=== PATIENT | female | born 1975 | race Caucasian/White ===

== ENCOUNTER 2021-03-04 11:05 | Emergency (ER) | payer OTHER ==
[~2021-03-04] VITALS: Ht 162.6 cm; Wt 75.0 kg
[~2021-03-04 11:05] MED LIST: DEPRESSION MED PO; GABA-1201 PO; MELO-107 PO; TRAM50TA4 PO
[2021-03-04] MEDS ORDERED: BACL10TA PO (11:20)
[2021-03-04] MEDS ORDERED: MECL25TA39 PO (11:20)
[2021-03-04] MEDS ORDERED: TRAZ-257 PO (11:20)
[2021-03-04] MEDS ORDERED: ARIP5TAB37 PO (11:20)
[2021-03-04] MEDS ORDERED: DOCU-275 PO (11:20)
[2021-03-04] MEDS ORDERED: FLUT16H NASAL (11:20)
[2021-03-04] MEDS ORDERED: HYDR-3831 PO (11:20)
[2021-03-04] MEDS ORDERED: BECL10.6 IH (11:20)
[2021-03-04] MEDS ORDERED: FLUO20CA36 PO (11:20)
[2021-03-04] MEDS ORDERED: LORA10TA7 PO (11:20)
[2021-03-04] MEDS ORDERED: POLY17PO47 PO (11:20)
[2021-03-04] MEDS ORDERED: ALBU8.5H8 IH (11:20)
[2021-03-04] MEDS ORDERED: PANT-31 PO (11:20)
[2021-03-04] MEDS ORDERED: ASPIRIN 81 MG CHEWABLE TABLET PO ONE (11:30)
[2021-03-04 12:28] VITALS: BP 133/75
[2021-03-04 12:39] LABS: BASOPHILS % (AUTO) 0.4 % (0.0-2.0); EOSINOPHILS % (AUTO) 1.5 % (1.0-6.0); HEMATOCRIT 41.4 % (36-46); HEMOGLOBIN 13.9 g/dL (12.0-16.0); LYMPHOCYTES # (AUTO) 1.6 K/uL (1.0-4.8); MEAN CORPUSCULAR HEMOGLOBIN 32.9 pg (26.0-34.0); MEAN CORPUSCULAR HGB CONC 33.6 G/dL (31.0-37.0); MEAN CORPUSCULAR VOLUME 98 fL (80-100); MONOCYTES # (AUTO) 0.4 K/uL (0.1-1.0); NEUTROPHILS # (AUTO) 4.7 K/uL (1.8-7.7); NEUTROPHILS % (AUTO) 69.1 % (40.0-70.0); PLATELET COUNT (AUTO) 256 K/uL (150-450); RED BLOOD CELL COUNT(AUTO) 4.22 MIL/uL (4.00-5.20); RED CELL DISTRIBUTION WIDTH 12.9 % (11.5-14.5)
[2021-03-04 12:47] LABS: ANION GAP 8 mmol/L (8-16); CALCIUM, TOTAL 8.9 mg/dL (8.8-10.5); CARBON DIOXIDE 30 mmol/L (22-29); CHLORIDE 107 mmol/L (98-107); CREATININE 0.78 mg/dL (0.60-1.30); GLOMERULAR FILTR. RATE CALC > 60 mL/min (>60); GLUCOSE,RANDOM 94 mg/dL (70-110); POTASSIUM 4.8 mmol/L (3.5-5.1); SODIUM SERUM 145 mmol/L (136-145); UREA NITROGEN, BLOOD 11 mg/dL (7-18)
[2021-03-04 12:59] LABS: HCG,QUANTITATIVE 1 mIU/mL (0-6)
== END 2021-03-04 13:19 | disposition home or self-care (01) ==
LOC: EMS 11:11
DX: R55 Syncope and collapse (principal); R07.2 Precordial pain; R00.1 Bradycardia, unspecified; F12.90 Cannabis use, unspecified, uncomplicated; Z79.899 Other long term (current) drug therapy
CPT/HCPCS: 71045; 80048; 84484; 84702; 85025; 93005; 99285; 36415-L1; 36415-TC

== ENCOUNTER 2022-05-10 08:45 | Inpatient (IN) | payer MEDICAID, OTHER ==
[~2022-05-10] VITALS: Ht 160 cm; Wt 82.0 kg
[~2022-05-10 08:45] MED LIST changes: +ALBU8.5H8 IH; +ARIP5TAB37 PO; +BACL10TA PO; +BECL10.6 IH; -DEPRESSION MED PO; +DOCU-385 PO; +FLUO20CA36 PO; +FLUT16H NASAL; +HYDR-3831 PO; +LORA10TA7 PO; +MECL25TA39 PO; -MELO-107 PO; +MELO-381 PO; +PANT-31 PO; +POLY17PO47 PO; +TRAM-559 PO; -TRAM50TA4 PO; +TRAZ-257 PO
[2022-05-10] MEDS ORDERED: LORazepam 2 MG/ML VIAL ONE (09:21)
[2022-05-10] MEDS ORDERED: DiphenhydrAMINE HCL 50 MG/ML VIAL ONE (09:21)
[2022-05-10] MEDS ORDERED: HALOPERIDOL LACTATE 5 MG/ML VIAL ONE (09:22)
[2022-05-10] MEDS ORDERED: LORazepam 2 MG/ML VIAL IM ONE (09:30)
[2022-05-10] MEDS ORDERED: HALOPERIDOL LACTATE 5 MG/ML VIAL IM ONE (09:30)
[2022-05-10] MEDS ORDERED: DiphenhydrAMINE HCL 50 MG/ML VIAL IM ONE (09:30)
[2022-05-10] MEDS ORDERED: PERTUSS(ACELL),DIPH,TET VAC/PF 0.5 ML SYRINGE IM. ONE (10:15)
[2022-05-10] MEDS ORDERED: BACITRACIN 0.9 GM PACKET OINTMENT TP ONE (10:15)
[2022-05-10] MEDS ORDERED: LIDOCAINE 1% 10 ML VIAL SQ ONE (10:15)
[2022-05-10 10:47] LABS: BASOPHILS % (AUTO) 0.6 % (0.0-2.0); EOSINOPHILS % (AUTO) 1.2 % (1.0-6.0); HEMATOCRIT 40.4 % (36-46); HEMOGLOBIN 13.4 g/dL (12.0-16.0); LYMPHOCYTES % (AUTO) 31.9 % (22.0-44.0); MEAN CORPUSCULAR HEMOGLOBIN 32.9 pg (26.0-34.0); MEAN CORPUSCULAR HGB CONC 33.2 G/dL (31.0-37.0); MEAN CORPUSCULAR VOLUME 99 fL (80-100); MONOCYTES # (AUTO) 0.6 K/uL (0.1-1.0); NEUTROPHILS # (AUTO) 3.6 K/uL (1.8-7.7); NEUTROPHILS % (AUTO) 57.3 % (40.0-70.0); PLATELET COUNT (AUTO) 309 K/uL (150-450); RED BLOOD CELL COUNT(AUTO) 4.07 MIL/uL (4.00-5.20); RED CELL DISTRIBUTION WIDTH 12.9 % (11.5-14.5)
[2022-05-10 10:52] LABS: COVID AG,FIA SOURCE NASOPHARYNGEAL
[2022-05-10 10:58] LABS: ANION GAP 3 mmol/L (8-16); CALCIUM, TOTAL 8.9 mg/dL (8.8-10.5); CARBON DIOXIDE 32 mmol/L (22-29); CHLORIDE 107 mmol/L (98-107); CREATININE 0.98 mg/dL (0.60-1.30); GLUCOSE,RANDOM 88 mg/dL (70-110); POTASSIUM 3.5 mmol/L (3.5-5.1); SODIUM SERUM 142 mmol/L (136-145); UREA NITROGEN, BLOOD 15 mg/dL (7-18)
[2022-05-10 11:01] LABS: ALANINE AMINOTRANSFERASE 35 U/L (12-78); ALBUMIN 3.5 g/dL (3.4-5.0); ALKALINE PHOSPHATASE 80 U/L (46-116); ASPARTATE AMINOTRANSFERASE 28 U/L (15-37); BILIRUBIN,TOTAL 0.6 mg/dL (0.1-1.0); TOTAL PROTEIN, SERUM 7.1 g/dL (6.4-8.2)
[2022-05-10 11:03] LABS: GLOMERULAR FILTR. RATE CALC > 60 mL/min (>60)
[2022-05-10 14:41] VITALS: BP 120/73
[2022-05-10 16:33] VITALS: BP 103/69
[2022-05-10] MEDS: HALOPERIDOL 5 MG TABLET PO PRN (22:30)
[2022-05-10] MEDS: LORazepam 2 MG TABLET PO PRN (22:30)
[2022-05-11 08:00] VITALS: BP 131/77
[2022-05-11] MEDS ORDERED: CloNIDine HCL 0.1 MG TABLET PO PRN (09:30)
[2022-05-11] MEDS ORDERED: ACETAMINOPHEN 325 MG TABLET PO PRN (09:30)
[2022-05-11] MEDS ORDERED: IBUPROFEN 600 MG TABLET PO PRN (09:30)
[2022-05-11] MEDS ORDERED: PETROLATUM,WHITE 28 GM JELLY TP PRN (09:30)
[2022-05-11] MEDS ORDERED: ALBUTEROL SULFATE HFA 90 MCG/PUFF 8 GM INHALER IH PRN (09:30)
[2022-05-11] MEDS ORDERED: DOCUSATE SODIUM 100 MG CAPSULE PO PRN (09:30)
[2022-05-11] MEDS ORDERED: BENZOCAINE/MENTHOL LOZENGE PO PRN (09:30)
[2022-05-11] MEDS ORDERED: MAGNESIUM HYDROXIDE SUSPENSION 30 ML UDCUP PO PRN (09:30)
[2022-05-11] MEDS ORDERED: BACITRACIN 28 GM OINTMENT TP PRN (09:30)
[2022-05-11] MEDS ORDERED: LOPERAMIDE HCL 2 MG CAPSULE PO PRN (09:30)
[2022-05-11] MEDS: MELOXICAM 7.5 MG TABLET PO SCH ×2 (10:13→17:08)
[2022-05-11] MEDS: BECLOMETHASONE DIPR HFA 40 MCG/PUFF 10.6 GM INHALER IH SCH ×2 (10:14→15:55)
[2022-05-11] MEDS: LORATADINE 10 MG TABLET PO SCH (10:14)
[2022-05-11] MEDS: GABAPENTIN 400 MG CAPSULE PO SCH ×2 (12:07→15:55)
[2022-05-11] MEDS: MAG HYDROX/AL HYDROX/SIMETH ES 30 ML SUSPENSION UDCUP PO PRN (15:21)
[2022-05-11] MEDS: LORazepam 2 MG TABLET PO PRN (15:42)
[2022-05-11] MEDS: FLUTICASONE PROPIONATE 50 MCG/SPRAY 16 GM NASAL SPRAY NASAL SCH (15:54)
[2022-05-11 16:22] VITALS: BP 139/80
[2022-05-12] MEDS: LORazepam 2 MG TABLET PO PRN ×2 (04:53→09:04)
[2022-05-12] MEDS: FLUTICASONE PROPIONATE 50 MCG/SPRAY 16 GM NASAL SPRAY NASAL SCH ×2 (08:32→16:14)
[2022-05-12] MEDS: MELOXICAM 7.5 MG TABLET PO SCH ×2 (08:33→16:15)
[2022-05-12] MEDS: LORATADINE 10 MG TABLET PO SCH (08:33)
[2022-05-12] MEDS: BECLOMETHASONE DIPR HFA 40 MCG/PUFF 10.6 GM INHALER IH SCH ×2 (08:33→16:14)
[2022-05-12] MEDS: GABAPENTIN 400 MG CAPSULE PO SCH ×3 (08:34→16:16)
[2022-05-12] MEDS: HALOPERIDOL 5 MG TABLET PO PRN ×2 (08:34→16:33)
[2022-05-12 09:42] VITALS: BP 155/89
[2022-05-12 16:00] VITALS: BP 123/75
[2022-05-12] MEDS: MAG HYDROX/AL HYDROX/SIMETH ES 30 ML SUSPENSION UDCUP PO PRN (22:32)
[2022-05-13] MEDS: ZOLPIDEM TARTRATE 10 MG TABLET PO PRN ×2 (00:37→21:04)
[2022-05-13] MEDS: ONDANSETRON HCL 4 MG TABLET PO PRN (00:38)
[2022-05-13 00:44] VITALS: BP 146/94
[2022-05-13] MEDS: OMEPRAZOLE 20 MG CAPSULE PO PRN (06:11)
[2022-05-13 08:00] VITALS: BP 113/65
[2022-05-13] MEDS: LORATADINE 10 MG TABLET PO SCH (08:42)
[2022-05-13] MEDS: GABAPENTIN 400 MG CAPSULE PO SCH ×3 (08:42→16:04)
[2022-05-13] MEDS: MELOXICAM 7.5 MG TABLET PO SCH ×2 (08:43→16:04)
[2022-05-13] MEDS: FLUTICASONE PROPIONATE 50 MCG/SPRAY 16 GM NASAL SPRAY NASAL SCH ×2 (08:43→16:05)
[2022-05-13] MEDS: BECLOMETHASONE DIPR HFA 40 MCG/PUFF 10.6 GM INHALER IH SCH ×2 (08:44→16:05)
[2022-05-13 16:39] VITALS: BP 108/57
[2022-05-13] MEDS: LORazepam 2 MG TABLET PO PRN (21:04)
[2022-05-13] MEDS: HALOPERIDOL 5 MG TABLET PO PRN (21:04)
[2022-05-14] MEDS: LORazepam 2 MG TABLET PO PRN ×3 (03:44→18:09)
[2022-05-14] MEDS: HALOPERIDOL 5 MG TABLET PO PRN ×3 (03:44→18:09)
[2022-05-14 08:00] VITALS: BP 129/65
[2022-05-14] MEDS: LORATADINE 10 MG TABLET PO SCH (08:16)
[2022-05-14] MEDS: MELOXICAM 7.5 MG TABLET PO SCH ×2 (08:16→18:09)
[2022-05-14] MEDS: GABAPENTIN 400 MG CAPSULE PO SCH ×3 (08:16→18:09)
[2022-05-14] MEDS: FLUTICASONE PROPIONATE 50 MCG/SPRAY 16 GM NASAL SPRAY NASAL SCH ×2 (08:17→18:10)
[2022-05-14] MEDS: BECLOMETHASONE DIPR HFA 40 MCG/PUFF 10.6 GM INHALER IH SCH ×2 (08:18→18:10)
[2022-05-14] MEDS: MAG HYDROX/AL HYDROX/SIMETH ES 30 ML SUSPENSION UDCUP PO PRN (11:06)
[2022-05-14 16:00] VITALS: BP 102/70
[2022-05-15] MEDS: FLUTICASONE PROPIONATE 50 MCG/SPRAY 16 GM NASAL SPRAY NASAL SCH ×2 (08:50→18:14)
[2022-05-15] MEDS: BECLOMETHASONE DIPR HFA 40 MCG/PUFF 10.6 GM INHALER IH SCH ×2 (08:51→18:15)
[2022-05-15] MEDS: LORATADINE 10 MG TABLET PO SCH (08:51)
[2022-05-15] MEDS: MELOXICAM 7.5 MG TABLET PO SCH ×2 (08:51→17:28)
[2022-05-15] MEDS: GABAPENTIN 400 MG CAPSULE PO SCH ×3 (08:51→17:28)
[2022-05-15 09:00] VITALS: BP 114/78
[2022-05-15] MEDS: MAG HYDROX/AL HYDROX/SIMETH ES 30 ML SUSPENSION UDCUP PO PRN (13:16)
[2022-05-15 16:26] VITALS: BP 131/73
[2022-05-15] MEDS: LORazepam 2 MG TABLET PO PRN (17:29)
[2022-05-16] MEDS: MAG HYDROX/AL HYDROX/SIMETH ES 30 ML SUSPENSION UDCUP PO PRN (00:01)
[2022-05-16 02:00] VITALS: BP 112/77
[2022-05-16] MEDS: ZOLPIDEM TARTRATE 10 MG TABLET PO PRN ×2 (02:05→20:33)
[2022-05-16 06:41] LABS: COVID AG,FIA SOURCE NASAL SWAB
[2022-05-16 08:51] VITALS: BP 138/88
[2022-05-16] MEDS: FLUTICASONE PROPIONATE 50 MCG/SPRAY 16 GM NASAL SPRAY NASAL SCH ×2 (09:39→17:22)
[2022-05-16] MEDS: BECLOMETHASONE DIPR HFA 40 MCG/PUFF 10.6 GM INHALER IH SCH ×2 (09:39→17:22)
[2022-05-16] MEDS: HALOPERIDOL 5 MG TABLET PO PRN ×2 (09:40→15:16)
[2022-05-16] MEDS: ONDANSETRON HCL 4 MG TABLET PO PRN (09:40)
[2022-05-16] MEDS: GABAPENTIN 400 MG CAPSULE PO SCH ×3 (09:40→17:21)
[2022-05-16] MEDS: OMEPRAZOLE 20 MG CAPSULE PO PRN (09:40)
[2022-05-16] MEDS: LORATADINE 10 MG TABLET PO SCH (09:40)
[2022-05-16] MEDS: MELOXICAM 7.5 MG TABLET PO SCH ×2 (09:41→17:21)
[2022-05-16] MEDS: LORazepam 2 MG TABLET PO PRN (15:16)
[2022-05-16 16:00] VITALS: BP 133/79
[2022-05-17 08:00] VITALS: BP 130/81
[2022-05-17] MEDS: MELOXICAM 7.5 MG TABLET PO SCH ×2 (08:52→16:29)
[2022-05-17] MEDS: GABAPENTIN 400 MG CAPSULE PO SCH ×3 (08:53→16:29)
[2022-05-17] MEDS: LORATADINE 10 MG TABLET PO SCH (08:53)
[2022-05-17] MEDS: FLUTICASONE PROPIONATE 50 MCG/SPRAY 16 GM NASAL SPRAY NASAL SCH ×2 (08:53→16:30)
[2022-05-17] MEDS: BECLOMETHASONE DIPR HFA 40 MCG/PUFF 10.6 GM INHALER IH SCH ×2 (08:54→16:30)
[2022-05-17 16:00] VITALS: BP 116/63
[2022-05-17 17:55] VITALS: BP 123/65
[2022-05-17] MEDS: HALOPERIDOL 5 MG TABLET PO PRN (21:25)
[2022-05-18 08:00] VITALS: BP 127/93
[2022-05-18] MEDS: MELOXICAM 7.5 MG TABLET PO SCH (08:17)
[2022-05-18] MEDS: GABAPENTIN 400 MG CAPSULE PO SCH (08:17)
[2022-05-18] MEDS: LORATADINE 10 MG TABLET PO SCH (08:17)
[2022-05-18] MEDS: FLUTICASONE PROPIONATE 50 MCG/SPRAY 16 GM NASAL SPRAY NASAL SCH (08:18)
[2022-05-18] MEDS: BECLOMETHASONE DIPR HFA 40 MCG/PUFF 10.6 GM INHALER IH SCH (08:18)
[2022-05-18] MEDS ORDERED: ARIP5TAB37 PO (08:30)
[2022-05-18] MEDS ORDERED: ARIPiprazole 5 MG TABLET PO SCH (09:00)
== END 2022-05-18 11:45 | disposition home or self-care (01) | DRG 753 ==
LOC: EMS 08:49 → 3EI 10:42
PROVIDERS: ADMIT Psychiatry & Neurology Psychiatry; ATTEND Psychiatry & Neurology Psychiatry
DX: F31.9 Bipolar disorder, unspecified (principal); F22 Delusional disorders; Z20.822 Contact with and (suspected) exposure to COVID-19; F41.9 Anxiety disorder, unspecified; G47.00 Insomnia, unspecified; J45.909 Unspecified asthma, uncomplicated; K59.00 Constipation, unspecified; M06.9 Rheumatoid arthritis, unspecified; S61.512A Laceration without foreign body of left wrist, initial encounter; S61.511A Laceration without foreign body of right wrist, initial encounter; X78.8XXA Intentional self-harm by other sharp object, initial encounter; Z91.52 Personal history of nonsuicidal self-harm; Y93.89 Activity, other specified; Y92.89 Other specified places as the place of occurrence of the external cause; Y99.8 Other external cause status
CPT/HCPCS: 12002; 80053; 84703; 85025; 90715; 99285; G0480; J1200; J1630; J2060; J3490; J3535; Q0162